=== PATIENT | male | born 1970 | race Caucasian/White ===

== ENCOUNTER 2022-11-05 08:10 | Outpatient (REF) | payer OTHER, SELFPAY ==
[2022-11-05 08:52] LABS: Hematocrit 40.6 % (42.0-52.0); Mean Corpuscular HGB Conc 34.5 g/dl (31.0-36.0); Mean Corpuscular Hemoglobin 31.4 pg (27.0-33.0); Mean Platelet Volume 8.6 fL (9.4-12.4); Platelet Count 266 X10*3/uL (160-400); Red Blood Count 4.46 X10*6/uL (4.60-5.80); Red Cell Distribution Width 11.5 % (11.0-16.0); White Blood Count 5.9 X10*3/uL (4.8-10.8)
[2022-11-05 09:29] LABS: Alanine Aminotransferase 45 U/L (0-40); Albumin Level 4.6 g/dL (3.5-5.0); Alkaline Phosphatase 59 U/L (39-117); Anion Gap 13 (12-20); Aspartate Amino Transferase 23 U/L (5-37); Bilirubin Total 0.7 mg/dL (0.0-1.0); Blood Urea Nitrogen 17 mg/dL (9-16); Calcium 9.1 mg/dL (8.4-10.2); Carbon Dioxide 27 mmol/L (22-29); Chloride 104 mmol/L (96-108); Cholesterol 204 mg/dL; Estimated Glomerular Filt Rate > 60; Glucose Fasting 97 mg/dL (60-99); HDL Cholesterol 49 mg/dL; LDL Cholesterol Calculated 133 mg/dl; Potassium 5.1 mmol/L (3.3-5.1); Sodium 139 mmol/L (135-145); Total Protein 6.9 g/dL (6.5-8.0); Triglycerides 112 mg/dL
[2022-11-05 09:52] LABS: TSH reflex Free T4 0.46 uIU/mL (0.32-4.0); Vitamin D 25-OH Total 23.7 ng/mL (>30)
[2022-11-11 20:04] LABS: PSA, Ultra Sensitive 0.44 ng/mL
== END 2022-11-05 08:11 | disposition home or self-care (01) ==
LOC: HO.LAB 08:10
PROVIDERS: PCP Nurse Practitioner Family; Visit Provider Nurse Practitioner Family
DX: Z00.00 Encounter for general adult medical examination without abnormal findings (principal); Z12.5 Encounter for screening for malignant neoplasm of prostate; E55.9 Vitamin D deficiency, unspecified
CPT/HCPCS: 36415; 80053; 80061; 82306; 84153; 84443; 85027

== ENCOUNTER 2023-10-10 08:42 | Outpatient (AMB) | payer OTHER, SELFPAY ==
--- NOTE | 2023-10-10 08:48 | A.OFFVIS_ITS ---
Intake Vital Signs 3 10/10/23 09:00 Height 5 ft 10 in Weight 165 lb BMI 23.7 BP 147/68 H Blood Pressure Location Lt brachial Position Sitting Pulse 91 Pulse Source Pulse Oximeter Pulse Oximetry (%) 99 Oxygen Delivery Method Room Air Intake Visit Reasons: Back pain/confirmed Intake Note: Pain today 02/12 Loom Checker Required: No Accompanied by: Self / Same As Patient Allergies No Known Allergies Allergy (Verified 11/04/22 11:51) HPI Back pain/confirmed 2 HPI0 Details Patient is a 52 years old male with chronic back pain presents today for procedure discussion to address his mid and lower back pain with bilateral radiculopathy. Patient attributes his chronic low back pain of 3 years due to a work related injury in 2020 while he was lifting heavy hurricane sliding door with another worker in [place] who accidentally dropped his side of the door while both of them were carrying it and patient felt sudden sharp and shooting pain in his mid and lower back. Patient reports he was evaluated in ER in [place] twice and was sent back to work within one week after being treated with x-rays, opioids, steroid taper and muscle relaxant without any relief. He developed urine incontinence and weakness in his legs one week later after injury and was sent to Neurosurgeon and Pain Specialist in [place] for a blown disc. Patient reports he completed physical therapy, TENS unit, chiropractic adjustment, medical management and back injections in [place] without any relief. Patient reports he moved to [place] a year ago and was sent to [facility] and Dr. Lobato office and was told he was not a surgical candidate and suggested to him methadone vs Suboxone clinic. He tried Suboxone last at [facility] but developed significant side effects. Patient also trialed oxycodone which allowed him to be less symptomatic and partially more functional but did not affect radicular symptoms in his lower extremities. Reports no relief with gabapentin trial in [place]. Patient's back pain is axial and also radiates to mid and lower back and into his lower extremities with numbness, tingling, heaviness and weakness in his anterior thighs. He also presents with midline tenderness to palpation in mid to lower thoracic and lower lumbar spine areas and muscle spasms bilaterally, worse on the left. Pain radiation to his lower extremities is more anteriorly than posteriorly with weakness in his thighs, left>right. Patient avoids bending as this will cause him to loose control and fall. He reports using cane and walker at home during severe back pain episodes. Patient constantly repositions himself during today's visit and uses his hand to push himself up to stand. Denies bowel or bladder dysfunction or saddle anesthesia. Patient is currently unemployed due to significant and debilitating back pain. He filled for disability in July 2022. Patient reports chronic pain affects his daily activities, functioning, mood, sleep, social interactions and quality of life. He is seeing Psychologist for anxiety due to back pain and fear of loosing his functioning and mobility. Patient reports pain affects his social interactions, relationships and that his marriage is suffering as well. Patient is interested in interventional treatments as well as another Neurosurgical evaluation to address his back issues. We will proceed with updating his lumbar spine MRI and also obtain thoracic MRI. Location Upper back radiates down to lower back Duration Chronic pain >3 years Characteristics of symptom or complaint Stabbing, throbbing, shooting, cramping, throbbing, radiating, pulling Aggravating or associated factors Any movement or activity, walking, standing, sitting, cannot do bending Relieving factors Opioid, Tylenol, Ibuprofen, naproxen, lidocaine, Flexeril, gabapentin, heat Treatment PT, TENS unit, massages, injections- no improvement; Suboxone-side effects [facility] Medical History (Updated 10/10/23 @ 10:43 by PURNIMA Lauren) Absence of testicle in scrotum Lymphocytic colitis Hypercholesterolemia Degenerative arthritis of spine Back injuries Arthritis Anxiety Hyperlipemia Migraine Family History Mother Asthma Hypertension Cardiovascular disease No family history of mental disorder Father Cardiovascular disease Hypertension No family history of mental disorder Maternal Grandmother Asthma Hypertension No family history of mental disorder Hyperlipemia Paternal Grandmother Cardiovascular disease No family history of mental disorder Paternal Grandfather No family history of mental disorder Cardiovascular disease Social History Household Members: Family and Children Housing: House Alcohol intake: current Alcohol intake frequency: holidays/special occasions only Alcohol type: beer Patient Tobacco Use Status: Former Tobacco user Quit Date: 8 years e-Cigarette/Vaping Use: Never Used Substance Use Type: Marijuana Current occupational status: employed Review of Systems Const All systems reviewed & are unremarkable except as noted in HPI and below Denies frequent falls and Reports weakness ENT Reports Normal hearing present Musc Reports numbness and Reports tingling Neuro Reports Normal hearing present, Denies behavioral changes, Reports burning sensations, Denies frequent falls, Reports numbness, Reports radicular pain, Reports tingling, Reports paresthesias, Denies tremor(s) and Reports weakness Psych Reports abnormal sleep pattern, Reports anxiety, Denies behavioral changes, Denies depression, Reports irritability, Reports anhedonia, Reports mood swings, Denies hallucinations, Denies tactile hallucinations and Denies homicidal ideation Physical Exam Vital Signs: Last Vital Signs Pulse 91 10/10/23 09:00 BP 147/68 H 10/10/23 09:00 Pulse Ox 99 10/10/23 09:00 Oxygen Delivery Method Room Air 10/10/23 09:00 BMI result Body Mass Index 23.7 General: Appears afebrile. Alert and oriented. Mood and affect appropriate. Follows and participates in conversation appropriately. Respiratory effort is unlabored. No cough. Able to transition from sit to stand unassisted. Reports cane and walker at home with severe back pain. Ambulates with bilaterally normal heel strike and toe off, feels unsteady standing on heels. Back/Spine/Pelvis Other: Limited back exam due to significant back pain. Patient cannot due bending, walks in semi-flex forward position and constantly changes his positioning due to back pain. Reports significant increase in pain with heel standing. Antalgic gait with limping. Uses his hands to push himself off the chair with standing. Limited thoracolumbar ROM. Demonstrates 5/5 right and 4/5 left strength of quadriceps bilaterally as well as flexion/dorsiflexion of bilateral feet against resistance. 2+ pedal pulses bilaterally. Seated straight leg rise with dorsiflexion positive bilaterally, left>right. +2 patellar and +1 achilles reflexes bilaterally. Facet loading test positive bilaterally. Arash sign, Candido?s, Gaenslen, and Stinchfield tests are positive bilaterally. No groin pain with I/E hip rotations. Valsalva maneuver negative. Moderate midline tenderness to palpation in the mid-lower thoracic and lower lumbar region. Cervical Spine: cervical ROM normal and No Cervical spine tenderness Thoracic/Lumbar Spine: thoracic and lumbar spine normal to inspection, No Thoracic/lumbar spine scar(s), Lasegue's sign positive bilateral and localized, pain with thoraco-lumbar ROM, paraspinal muscle tenderness, thoraco-lumbar ROM limited, thoracic spinal tenderness and lumbar spinal tenderness Pelvis: buttock tenderness Sacroiliac joints: bilaterally tender to palpation Neuro Cranial nerves: Yes Normal hearing present Psych Appearance: grossly normal Mental Status: mental status grossly normal Speech and movement: Normal speech and movement present and Clear speech present Affect: normal affect and Anxious affect present Attitude: cooperative Thought process: Normal thought process present Thought content: Normal thought content present and No Depressive thoughts present Insight: Good insight present (Psych) Judgement: Good judgement present (Psych) Results Reviewed Results Reviewed: Assessment & Plan Assessment & Plan (1) Chronic back pain: Code(s): M54.9 - Dorsalgia, unspecified; G89.29 - Other chronic pain (2) Lumbosacral spondylosis: Code(s): M47.817 - Spondylosis without myelopathy or radiculopathy, lumbosacral region (3) Lumbar radiculopathy: Code(s): M54.16 - Radiculopathy, lumbar region (4) Lumbar degenerative disc disease: Code(s): M51.36 - Other intervertebral disc degeneration, lumbar region (5) Thoracic back pain: Code(s): M54.6 - Pain in thoracic spine Plan MRI of the lumbar and thoracic spines to assess for neural integrity and compression and follow up on previous lumbar MRI findings. Patient has tried NSAIDs, opioids, heat therapy, PT, chiropractic and massage therapy, muscle therapy, interventional treatments with continued symptoms. The back pain is function and mobility limiting and has been resistant to conservative treatments. Patient will return to the clinic to discuss results of the MRI findings when it is done and consider interventional therapy vs Neurosurgical evaluation as indicated. Briefly discussed neuromodulation with SCS trial/implant, can consider ITDD pain pump trial as well, and lumbar medial branch RFA for a longer term pain management. Informational pamphlet provided to patient. Patient is aware to call if pain worsens or if he develops any red flag symptoms to seek emergency care. Patient denies any cauda equina syndrome symptoms at this time. All questions and concerns have been answered and patient on board with the plan. Follow up for MRI results and sooner as needed. Orders: Orders 2 MR thoracic spine wo con Today M47.817 - Spondylosis without myelopathy or radiculopathy, lumbosacral region, M51.36 - Other intervertebral disc degeneration, lumbar region, M54.16 - Radiculopathy, lumbar region, M54.6 - Pain in thoracic spine MR lumbar spine wo con Today G89.29 - Other chronic pain, M47.817 - Spondylosis without myelopathy or radiculopathy, lumbosacral region, M51.36 - Other intervertebral disc degeneration, lumbar region, M54.16 - Radiculopathy, lumbar region, M54.9 - Dorsalgia, unspecified Coding Level of Care Code New Pt Level 4 (60656) Diagnoses Chronic back pain M54.9; G89.29 Lumbosacral spondylosis M47.817 Lumbar radiculopathy M54.16 Lumbar degenerative disc disease M51.36 Thoracic back pain M54.6
[2023-10-10 09:00] VITALS: BP 147/68; PULSE 91; O2SAT 99; BMI 23.7
== END 2023-10-10 09:35 | disposition home or self-care (01) ==
PROVIDERS: PCP Internal Medicine; Visit Provider Nurse Practitioner Family
DX: M54.9 Dorsalgia, unspecified (principal); G89.29 Other chronic pain; M47.817 Spondylosis without myelopathy or radiculopathy, lumbosacral region; M54.16 Radiculopathy, lumbar region; M51.36 Other intervertebral disc degeneration, lumbar region; M54.6 Pain in thoracic spine
CPT/HCPCS: 99204

== ENCOUNTER → 2023-10-10 08:42 | Outpatient (BNVA) | payer OTHER, SELFPAY | PROVIDERS: PCP Internal Medicine; Visit Provider Nurse Practitioner Family ==

== ENCOUNTER 2023-11-08 14:12 | Outpatient (REF) | payer OTHER, SELFPAY ==
--- NOTE | ~2023-11-08 | MR_ITS ---
MRI OF THE THORACIC SPINE WITHOUT CONTRAST MRI OF THE LUMBAR SPINE WITHOUT CONTRAST CLINICAL INFORMATION: Spondylosis without myelopathy or radiculopathy. Dorsalgia. COMPARISON: Lumbar spine MRI 10/15/2020. TECHNIQUE: Multiplanar multisequence MR imaging of the thoracic and lumbar spine obtained without contrast. FINDINGS: THORACIC SPINE MRI: Partially imaged central disc herniation at C6-C7 results in potential severe central canal stenosis and compression of the cervical spinal cord that would be better assessed with a dedicated cervical spine MRI. There are 12 rib-bearing thoracic type vertebral bodies. Thoracic alignment is maintained. Vertebral body heights are preserved. Small chronic endplate Schmorl's nodes within the mid to lower thoracic spine. Conus terminates at the T12-L1 level. No definite thoracic cord signal changes accounting for artifact. No significant extraspinal soft tissue findings. Multilevel hypertrophic facet arthropathy. Small paracentral disc protrusions at the T7-T8, T8-T9, T9-T10, T10-T11, and T11-T12 levels minimally indent the ventral thecal sac without resulting in central canal stenosis. There is no significant foraminal stenosis. LUMBAR SPINE MRI: There are 5 nonrib-bearing lumbar-type vertebral bodies. Grade 1 retrolisthesis of L1 on L2. Lumbar alignment is otherwise normal. The vertebral body heights are maintained. There is mild disc volume loss at L1-L2, L2-L3, and L3-L4. Disc desiccation at L2-L3 and L3-L4. There is no bone marrow edema. There are no acute fractures. Conus terminates at the L1 level. No significant extra spinal soft tissue findings. L1-L2: Slight retrolisthesis. Small annular disc bulge. No central canal stenosis. Mild foraminal encroachment bilaterally. L2-L3: Slight annular disc bulge. Mild bilateral facet arthropathy. No central canal stenosis. Mild foraminal encroachment bilaterally. L3-L4: Diffuse annular disc bulge and mild bilateral facet arthropathy and ligamentum flavum thickening. No central canal stenosis. There is mild foraminal encroachment bilaterally. L4-L5: Diffuse annular disc bulge and severe bilateral hypertrophic facet arthropathy and ligamentum flavum thickening. No central canal stenosis. There is mild bilateral foraminal encroachment. L5-S1: Small annular disc bulge exhibiting a right dorsal annular fissure. There is severe right-sided facet arthropathy. There is no central canal stenosis. There is mild right-sided foraminal encroachment. MR/MR thoracic spine wo con IMPRESSION: - Partially imaged central disc herniation at C6-C7 results in potential severe central canal stenosis and compression of the cervical spinal cord that would be better assessed with a dedicated cervical spine MRI. - There is mild to moderate thoracic spondylosis. No severe central canal stenosis and no severe foraminal stenosis within the thoracic spine. - Mild to moderate lumbar spondylosis. No severe central canal stenosis and no severe foraminal stenosis within the lumbar spine. There is severe right-sided hypertrophic facet arthropathy at L5-S1 and there is severe bilateral hypertrophic facet arthropathy at L4-L5.
== END 2023-11-08 14:13 | disposition home or self-care (01) ==
LOC: HO.MRI 14:12
PROVIDERS: PCP Internal Medicine; Visit Provider Nurse Practitioner Family
DX: M47.817 Spondylosis without myelopathy or radiculopathy, lumbosacral region (principal); M54.16 Radiculopathy, lumbar region; M54.6 Pain in thoracic spine; G89.29 Other chronic pain
CPT/HCPCS: 72146; 72148

== ENCOUNTER 2023-11-17 10:56 | Outpatient (REF) | payer OTHER, SELFPAY ==
--- NOTE | ~2023-11-17 | XR_ITS ---
EXAMINATION: XR LUMBOSACRAL SPINE WITH OBLIQUES CLINICAL INFORMATION: Intervertebral disc degeneration. COMPARISON: None available. TECHNIQUE: AP, lateral neutral, flexion and extension views of the lumbar spine. FINDINGS: Mild rightward curvature of the lumbar spine. Degenerative changes in the bilateral sacroiliac joints. Facet arthritis in the lower lumbar spine. Moderate multilevel lumbar spondylosis. Grade 1 retrolisthesis of L1 on L2, L2 on L3 and L3 on L4 with flexion and extension. XR/XR lumbar spine 4V min IMPRESSION: Facet arthritis in the lower lumbar spine. Moderate multilevel lumbar spondylosis. Grade 1 retrolisthesis of L1 on L2, L2 on L3 and L3 on L4 with flexion and extension.
== END 2023-11-17 10:57 | disposition home or self-care (01) ==
LOC: HO.HOSX 10:56
PROVIDERS: PCP Internal Medicine; Visit Provider Physician Assistant
DX: M51.36 Other intervertebral disc degeneration, lumbar region (principal)
CPT/HCPCS: 72110

== ENCOUNTER 2023-11-17 10:56 | Outpatient (AMB) | payer OTHER, SELFPAY ==
--- NOTE | 2023-11-17 10:21 | HO.SPINEOV ---
Intake Intake Visit Reasons: Spinal Stenosis Intake Note: Mr. Dyer is here today c/o back pain. Support Specialist Required: No Allergies No Known Allergies Allergy (Verified 12/05/23 09:19) Assessment & Plan Assessment & Plan (1) Lumbago: Code(s): M54.50 - Low back pain, unspecified Plan Dear Kirsten, Thank you for referring Lui to our office today. He is a pleasant 52 year old male who comes in today with a CC of low back pain with radiation into his bilateral posterior thighs. He reports an inciting incident of carrying a door with a co-worker 3 years ago. He states his co-worker dropped his side of the door, causing a sharp pain in the patients low back with shooting pains into his posterior buttocks. He states he utilized a TENS unit, personal care service provider, and PT for intermittent relief of his symptoms. He is now to the point where this pain is nearly constant and is causing him a great deal of distress. He reports no burning / numbness / tingling associated with his pain. He is also tried [id number] pain medications such as Tylenol, ibuprofen, pain relief patches, and pain relief gels/creams without significant relief of his pain. He was previously evaluated by a neurosurgeon in [place] for a collapsed disc in his low back. He states that he gets relief from lying down flat, and feels his symptoms are aggravated by bending/lifting. Additionally, he reports every 2-3 months he will have ?episodes? where he feels like he throws out his back and is unable to control his legs. He loses the ability to maintain upright and falls on the ground, and needs to be brought to the hospital by annealing furnace tender/ambulance. PMH: Anxiety, Vitamin D deficieny, depression, hyperlipidemia. Social hx: Patient does not smoke, reports no substance use. Medications: Vitamin D3, cyclobenzaprine, fluoxetine, naproxen, simvastatin. Allergies: NKDA Physical exam: The patient is in obvious agony on exam. He has 5/5 strength in his upper and lower extremities, although does elicit pain when engaging full strength. His sensation is grossly intact. His reflexes are 2+ intact. He is able to rise from a seated position with some difficulty, and utilizes the chair to raise himself. He ambulates without an antalgic gait, but does do so slowly and elicits pain. (+) Jeffry's, (+) Arash finger test (both sides), (+) straight leg raise bilaterally (likely confounded by pain), (-) Medina's, (-) clonus, (-) Lhermitte's. Imaging review: MRI of the lumbar and thoracic spine reviewed. MRI of the thoracic spine shows a partially imaged C7-T1 disc herniation that is likely causing significant central cord compression. It is difficult to ascertain due to limited imaging of this level. No other obvious thoracic pathology. MRI of the lumbar spine is largely unremarkable from a neurosurgical standpoint, aside from facet arthropathy seen diffusely from L2-S1. Impression: Lui is a pleasant 53-year-old male who comes in today with a chief complaint of low back pain with radiation into his bilateral posterior thighs. He reports an inciting incident of an accident at work 3 years ago when moving a heavy door with a co-worker. He states he had a fairly significant disc herniation which was treated with cortisone injections and medications. This herniation has completely resorbed on the MRI I reviewed today. His lumbar MRI really appears normal without significant pathology seen, aside from diffuse facet arthropathy from L2-S1. His thoracic MRI also appears generally unremarkable, aside from what looks like a rather large disc herniation at C6-7, which was seen incidentally at the top of his thoracic MRI. This area is partially cut off and can only be somewhat evaluated. Notably he has no physical exam findings that would indicate an obvious cervical spine pathology. He has no cervical radiculopathy, and no myelopathic reflexes. His only real symptom of potential cervical pathology is the disclosure that he loses the ability to control his legs when he has back pain exacerbations. He does appear to have several physical exam findings that would be indicative of SI joint pathology, but it is unclear which of his SI joints may be affected. Alternatively he may have protracted and possibly permanent symptoms in his lower back and legs result of the disc herniation that was treated non-surgically. There are several things that I would like to do for this patient. I will be sending him for a set of x-rays of the lumbar spine to evaluate for any instability that may not be seen on MRI. I will be referring him back to pain management and recommending that he have bilateral diagnostic SI joint injections to evaluate for potential SI joint pathology, which may be addressed via fusion. I additionally will be sending the patient for an MRI of the cervical spine to better evaluate the pathology that was incidentally seen on thoracic spine MRI. This case will be discussed with the attending neurosurgeon Dr. Babin. Thank you for allowing us to care for your patient. The total time spent with this visit with this patient was 60 minutes reviewing history, physical exam, MRI imaging review, and implementation of treatment plan or further diagnostic testing Chapito Babin MD,PhD [facility] Orders: Orders MR cervical spine wo con 11/17/23 M54.2 - Cervicalgia XR lumbar spine 4V min 11/17/23 M51.36 - Other intervertebral disc degeneration, lumbar region Referrals Pain Management Referral M54.50 - Low back pain, unspecified Coding Level of Care Code New Pt Level 5 (07726) Diagnoses Lumbago M54.50
== END 2023-11-17 11:34 | disposition home or self-care (01) ==
PROVIDERS: PCP Internal Medicine; Referring Provider Internal Medicine; Visit Provider Physician Assistant
DX: M54.50 Low back pain, unspecified (principal)
CPT/HCPCS: 99205

== ENCOUNTER 2023-12-01 19:56 | Outpatient (REF) | payer OTHER, SELFPAY ==
--- NOTE | ~2023-12-01 | MR_ITS ---
EXAMINATION: MR CERVICAL SPINE WITHOUT CONTRAST CLINICAL INFORMATION: Evaluate C6-C7 disc herniation COMPARISON: MRI thoracic spine 11/08/2023 TECHNIQUE: MRI of the cervical spine was obtained using routine sequences without contrast. FINDINGS: The craniocervical junction is intact. The cervical lordosis is preserved. There is no significant spondylolisthesis. Vertebral body heights are normal without acute compression fracture. No suspicious osseous lesion. Multilevel disc desiccation with up to moderate to severe C6-C7 and otherwise milder disc height loss. Type I/II Modic endplate changes and small endplate Schmorl's nodes at C6-C7. Trace type I Modic endplate change at C5-C6. There are multilevel degenerative changes with level by level detail as follows: C2-C3: Shallow central disc protrusion and minor uncovertebral spurring without spinal canal or neural foraminal stenosis. C3-C4: Annular disc bulge and right greater than left uncovertebral joint hypertrophy. Mild bilateral facet arthrosis. No overt spinal canal stenosis, noting encroachment upon the right ventral cord. Moderate to severe right and moderate left neural foraminal stenosis. C4-C5: Annular disc bulge with superiorly migrated central disc extrusion, bilateral uncovertebral joint hypertrophy and mild facet arthrosis. Mild to moderate spinal canal stenosis with mass effect and indentation along the left paramidline ventral cord. Moderate to severe bilateral neural foraminal stenosis. C5-C6: Disc osteophyte complex with bilateral uncovertebral joint hypertrophy and mild right greater than left facet arthrosis. Mild spinal canal and severe bilateral neural foraminal stenosis. C6-C7: Disc osteophyte complex with broad-based paracentral disc protrusion, bilateral uncovertebral joint hypertrophy, and mild bilateral facet arthrosis. Redemonstrated severe spinal canal stenosis with cord compression/deformity without intramedullary signal abnormality. Severe bilateral neural foraminal stenosis. C7-T1: Moderate to severe hypertrophic right and milder left facet arthrosis. No spinal canal stenosis. Mild to moderate right left neural foraminal stenosis. No cervical cord signal abnormality. No epidural fluid collection, mass, or hematoma. No significant abnormalities of the paraspinal musculature. The flow voids of the major cervical vessels are maintained. The visualized intracranial structures are normal. No demonstrated abnormalities in the visualized neck. MR/MR cervical spine wo con IMPRESSION: Multilevel cervical spondylosis as described above, worst at C6-C7 where there is severe spinal canal stenosis with cord compression/deformity without intramedullary signal abnormality. At C4-C5, there is mild to moderate spinal canal stenosis with mass effect and indentation along the left ventral cord. Multilevel high-grade neural foraminal stenosis as above.
== END 2023-12-01 19:57 | disposition home or self-care (01) ==
LOC: HO.MRI 19:56
PROVIDERS: PCP Internal Medicine; Visit Provider Nurse Practitioner Family
DX: M48.02 Spinal stenosis, cervical region (principal); M54.12 Radiculopathy, cervical region; M54.6 Pain in thoracic spine
CPT/HCPCS: 72141

== ENCOUNTER 2023-12-05 08:58 | Outpatient (AMB) | payer OTHER, SELFPAY ==
[2023-12-05 09:18] VITALS: BP 121/69; PULSE 86; RESP 14; O2SAT 95; BMI 23.7
--- NOTE | 2023-12-05 09:18 | MHC.OFFVIS ---
Vital Signs 12/05/23 09:18 Height 5 ft 10 in Weight 165 lb BMI 23.7 BP 121/69 Blood Pressure Location Lt brachial Position Sitting Respiration 14 Pulse 86 Pulse Source Pulse Oximeter Pulse Oximetry (%) 95 Oxygen Delivery Method Room Air Intake Visit Reasons: Low Back Pain Allergies No Known Allergies Allergy (Verified 12/05/23 09:19) Medication List - Last Reconciled 12/05/23 by Mily Adamson LPN cyclobenzaprine 10 mg PO TID multivitamin 1 tab PO DAILY simvastatin 40 mg PO DAILY HPI HPI Low Back Pain: Details: 52-year-old male who presents today to the office for low back pain. He reports low back pain with radiation into his bilateral posterior thighs. He reports an inciting incident involving carrying a door with a co-worker three years ago. He was lifting a heavy hurricane sliding door with another worker in [place] who accidentally dropped his side of the door while both of them were carrying it, and the patient felt sudden sharp and shooting pain in his mid and lower back. The back pain is axial and also radiates to the mid and lower back and into his lower extremities, with numbness, tingling, heaviness, and weakness in his anterior thighs. He was previously evaluated by a neurosurgeon in [place] for a collapsed disc in his low back. He states that he gets relief from lying down flat and feels his symptoms are aggravated by bending or lifting. He completed physical therapy, a TENS unit, chiropractic adjustment, home exercises, swimming, medical management, and back injections in [place] without any relief. He has not tried inversion table in the past. Patient reports he moved to [place] a year ago and was sent to the [facility] and Dr. Lobato offices, where he was told he was not a surgical candidate and suggested to him methadone vs. suboxone. He tried Suboxone last May at [facility] but developed significant side effects. He has also tried [id number] pain medications such as Tylenol, ibuprofen, pain relief patches, and pain relief gels and creams without significant relief from his pain. [facility] Medical History (Updated 11/17/23 @ 11:46 by EMILY Juan) Absence of testicle in scrotum Lymphocytic colitis Hypercholesterolemia Degenerative arthritis of spine Back injuries Arthritis Anxiety Hyperlipemia Migraine Family History Mother Asthma Hypertension Cardiovascular disease No family history of mental disorder Father Cardiovascular disease Hypertension No family history of mental disorder Maternal Grandmother Asthma Hypertension No family history of mental disorder Hyperlipemia Paternal Grandmother Cardiovascular disease No family history of mental disorder Paternal Grandfather No family history of mental disorder Cardiovascular disease Social History Household Members: Family and Children Housing: House Alcohol intake: current Alcohol intake frequency: holidays/special occasions only Alcohol type: beer Patient Tobacco Use Status: Former Tobacco user Quit Date: 8 years e-Cigarette/Vaping Use: Never Used Substance Use Type: Marijuana Current occupational status: employed Review of Systems Const All systems reviewed & are unremarkable except as noted in HPI and below Physical Exam Vital Signs: Last Vital Signs Pulse 86 12/05/23 09:18 Resp 14 12/05/23 09:18 BP 121/69 12/05/23 09:18 Pulse Ox 95 12/05/23 09:18 Oxygen Delivery Method Room Air 12/05/23 09:18 BMI result Body Mass Index 23.7 General: Appears afebrile. Alert and oriented. Mood and affect appropriate. Follows and participates in conversation appropriately. Respiratory effort is unlabored. Able to transition from sit to stand unassisted. Ambulates with bilaterally normal heel strike and toe off. Lumbar extension reproduces pain. Results Reviewed Results Reviewed: 11/08/23: MRI OF THE THORACIC SPINE WITHOUT CONTRAST MRI OF THE LUMBAR SPINE WITHOUT CONTRAST FINDINGS: THORACIC SPINE MRI: Partially imaged central disc herniation at C6-C7 results in potential severe central canal stenosis and compression of the cervical spinal cord that would be better assessed with a dedicated cervical spine MRI. There are 12 rib-bearing thoracic type vertebral bodies. Thoracic alignment is maintained. Vertebral body heights are preserved. Small chronic endplate Schmorl's nodes within the mid to lower thoracic spine. Conus terminates at the T12-L1 level. No definite thoracic cord signal changes accounting for artifact. No significant extraspinal soft tissue findings. Multilevel hypertrophic facet arthropathy. Small paracentral disc protrusions at the T7-T8, T8-T9, T9-T10, T10-T11, and T11-T12 levels minimally indent the ventral thecal sac without resulting in central canal stenosis. There is no significant foraminal stenosis. LUMBAR SPINE MRI: There are 5 nonrib-bearing lumbar-type vertebral bodies. Grade 1 retrolisthesis of L1 on L2. Lumbar alignment is otherwise normal. The vertebral body heights are maintained. There is mild disc volume loss at L1-L2, L2-L3, and L3-L4. Disc desiccation at L2-L3 and L3-L4. There is no bone marrow edema. There are no acute fractures. Conus terminates at the L1 level. No significant extra spinal soft tissue findings. L1-L2: Slight retrolisthesis. Small annular disc bulge. No central canal stenosis. Mild foraminal encroachment bilaterally. L2-L3: Slight annular disc bulge. Mild bilateral facet arthropathy. No central canal stenosis. Mild foraminal encroachment bilaterally. L3-L4: Diffuse annular disc bulge and mild bilateral facet arthropathy and ligamentum flavum thickening. No central canal stenosis. There is mild foraminal encroachment bilaterally. L4-L5: Diffuse annular disc bulge and severe bilateral hypertrophic facet arthropathy and ligamentum flavum thickening. No central canal stenosis. There is mild bilateral foraminal encroachment. L5-S1: Small annular disc bulge exhibiting a right dorsal annular fissure. There is severe right-sided facet arthropathy. There is no central canal stenosis. There is mild right-sided foraminal encroachment. IMPRESSION: - Partially imaged central disc herniation at C6-C7 results in potential severe central canal stenosis and compression of the cervical spinal cord that would be better assessed with a dedicated cervical spine MRI. - There is mild to moderate thoracic spondylosis. No severe central canal stenosis and no severe foraminal stenosis within the thoracic spine. - Mild to moderate lumbar spondylosis. No severe central canal stenosis and no severe foraminal stenosis within the lumbar spine. There is severe right-sided hypertrophic facet arthropathy at L5-S1 and there is severe bilateral hypertrophic facet arthropathy at L4-L5. 11/17/23: XR LUMBOSACRAL SPINE WITH OBLIQUES FINDINGS: Mild rightward curvature of the lumbar spine. Degenerative changes in the bilateral sacroiliac joints. Facet arthritis in the lower lumbar spine. Moderate multilevel lumbar spondylosis. Grade 1 retrolisthesis of L1 on L2, L2 on L3 and L3 on L4 with flexion and extension. IMPRESSION: Facet arthritis in the lower lumbar spine. Moderate multilevel lumbar spondylosis. Grade 1 retrolisthesis of L1 on L2, L2 on L3 and L3 on L4 with flexion and extension. 12/01/23: MR CERVICAL SPINE WITHOUT CONTRAST FINDINGS: The craniocervical junction is intact. The cervical lordosis is preserved. There is no significant spondylolisthesis. Vertebral body heights are normal without acute compression fracture. No suspicious osseous lesion. Multilevel disc desiccation with up to moderate to severe C6-C7 and otherwise milder disc height loss. Type I/II Modic endplate changes and small endplate Schmorl's nodes at C6-C7. Trace type I Modic endplate change at C5-C6. There are multilevel degenerative changes with level by level detail as follows: C2-C3: Shallow central disc protrusion and minor uncovertebral spurring without spinal canal or neural foraminal stenosis. C3-C4: Annular disc bulge and right greater than left uncovertebral joint hypertrophy. Mild bilateral facet arthrosis. No overt spinal canal stenosis, noting encroachment upon the right ventral cord. Moderate to severe right and moderate left neural foraminal stenosis. C4-C5: Annular disc bulge with superiorly migrated central disc extrusion, bilateral uncovertebral joint hypertrophy and mild facet arthrosis. Mild to moderate spinal canal stenosis with mass effect and indentation along the left paramidline ventral cord. Moderate to severe bilateral neural foraminal stenosis. C5-C6: Disc osteophyte complex with bilateral uncovertebral joint hypertrophy and mild right greater than left facet arthrosis. Mild spinal canal and severe bilateral neural foraminal stenosis. C6-C7: Disc osteophyte complex with broad-based paracentral disc protrusion, bilateral uncovertebral joint hypertrophy, and mild bilateral facet arthrosis. Redemonstrated severe spinal canal stenosis with cord compression/deformity without intramedullary signal abnormality. Severe bilateral neural foraminal stenosis. C7-T1: Moderate to severe hypertrophic right and milder left facet arthrosis. No spinal canal stenosis. Mild to moderate right left neural foraminal stenosis. No cervical cord signal abnormality. No epidural fluid collection, mass, or hematoma. No significant abnormalities of the paraspinal musculature. The flow voids of the major cervical vessels are maintained. The visualized intracranial structures are normal. No demonstrated abnormalities in the visualized neck. IMPRESSION: Multilevel cervical spondylosis as described above, worst at C6-C7 where there is severe spinal canal stenosis with cord compression/deformity without intramedullary signal abnormality. At C4-C5, there is mild to moderate spinal canal stenosis with mass effect and indentation along the left ventral cord. Multilevel high-grade neural foraminal stenosis as above. Assessment & Plan Assessment & Plan (1) Spinal stenosis of cervical region with radiculopathy: Code(s): M48.02 - Spinal stenosis, cervical region; M54.12 - Radiculopathy, cervical region Category: Medical (2) Lumbosacral spondylosis: Code(s): M47.817 - Spondylosis without myelopathy or radiculopathy, lumbosacral region Category: Medical (3) Lumbar radiculopathy: Code(s): M54.16 - Radiculopathy, lumbar region Category: Medical Plan Discussed sacroiliac joint injections vs. facet nerve block injections as a possible treatment option. His MRI is largely negative for a neurogenic source of his symptoms, though there is multilevel disc degeneration and mild foraminal stenoses. We will proceed with bilateral diagnostic lower lumbar L3-L4-L5 MBB as a 1st step given significant facet findings on MRI and axial low back pain. It does not appear he has had previous facet injections. Discussed the risks and benefits of the procedure with the patient in detail. All questions were answered. The patient is on board with the plan. Justification for interventional therapy: ? Patient with average pain > 6/10 ? Patient has exhausted conservative therapy physical therapy, a TENS unit, chiropractic adjustment, home exercises, swimming, medical management, and back injections in [place]. ? Patient unable to tolerate physical therapy due to pain. . Patient has a good understanding of their pain condition and has appropriate mental and social support Scribed for Dr. Lange by Rene Obrien, clinical medical assistant, on 12/05/2023. I, Dr. Lange, have personally reviewed and agree with the information entered by the scribe.
== END 2023-12-05 10:33 | disposition home or self-care (01) ==
PROVIDERS: PCP Internal Medicine; Visit Provider Internal Medicine
DX: M48.02 Spinal stenosis, cervical region (principal); M54.12 Radiculopathy, cervical region; M47.817 Spondylosis without myelopathy or radiculopathy, lumbosacral region; M54.16 Radiculopathy, lumbar region
CPT/HCPCS: 99204

== ENCOUNTER → 2023-12-05 08:58 | Outpatient (BNVA) | payer OTHER, SELFPAY | PROVIDERS: PCP Internal Medicine; Visit Provider Internal Medicine ==